=== PATIENT | male | born 1960 | race Caucasian/White ===

== ENCOUNTER 2020-10-12 13:21 | Emergency (ER) | payer OTHER, SELFPAY ==
[2020-10-12 13:22] VITALS: BP 132/75; PULSE 62; RESP 18; TEMP 36; O2SAT 98; BMI 39.5
--- NOTE | 2020-10-12 13:52 | EX.ED.GENINJ ---
HPI History of Present Illness Chief Complaint: Fall Informant: patient and EMS Narrative Narrative: 60-year-old male in town on business states he was going down a flight of stairs when he thought he was on the last step but he was actually on the third of a step. States that his left leg came down he landed on his buttocks and felt a pop in his distal thigh. He states he was unable to get up on his own. He reports being unable to contract his thigh muscles. PFSH PFSH Allergy/AdvReac Type Severity Reaction Status Date / Time No Known Allergies Allergy Verified 10/12/20 13:27 ROS ROS ED Constitutional Constitutional ED: Denies chills or weight loss Eyes Eyes: Denies change in vision or diplopia ENT ENT ED: Denies ear pain, rhinorrhea or sore throat Cardiovascular Cardiovascular: Denies chest pain, orthopnea, palpitations or racing heartbeat Respiratory/Chest Respiratory/Chest: Denies cough, dyspnea or orthopnea Gastrointestinal Gastrointestinal: Denies abdominal pain, diarrhea, nausea or vomiting Genitourinary Genitourinary ED: Denies dysuria, hematuria or urinary frequency Musculoskeletal Musculoskeletal: Reports other Details: See history of present illness ; Denies arthralgias or myalgias Integumentary Denies abscess or rash Neurologic Neurologic: Denies headache(s) or weakness Psychiatric Psychiatric: Denies anxiety, depression, suicidal ideation or suicidal thoughts Endocrine Endocrinology: Denies polydipsia, polyphagia or polyuria Allergic/Immunologic Allergic/Immunologic ED: Denies mouth swelling, tongue swelling or urticaria EXAM Physical Exam Const Vital Signs: 10/12/20 13:22 Temperature 96.8 F L Temperature Source Temporal Pulse Rate 62 Respiratory Rate 18 Blood Pressure 132/75 H Blood Pressure Mean 94 Pulse Ox 98 Oxygen Delivery Method Room Air Positive well nourished, well developed and obese General Appearance ED: well developed Nutritional Appearance: obese HEENT Reports normocephalic, head/scalp atraumatic and moist mucous membranes Eyes PERRL and EOMs intact bilaterally Neck no lymphadenopathy, supple and no JVD Resp normal respiratory effort and clear to auscultation bilaterally Cardio regular rate, regular rhythm and no murmurs GI normal to inspection, nondistended, normoactive bowel sounds and non-tender Palpation: soft Back/Spine no CVA tenderness and normal ROM Extremity Extremity Narrative: Patient appears to have disruption of his extensor mechanism on the left leg. There is a palpable defect just proximal to the left patella. Neurovascular intact distal. General Extremety ED: Negative for edema General Extremity: Negative for edema Neuro oriented x3 and CN's II-XII intact bilaterally Sensorium / Orientation: alert Motor Exam: strength 5/5 throughout Psych mental status grossly normal Mood & Affect: Negative for depressed or tearful Skin no rashes or lesions noted and no wounds MDM MDM MDM Narrative Medical decision making narrative: My impression of the plain films of the left femur and knee is low riding patella with probable avulsion fracture of the proximal patella. I suspect the patient's had quadricep tendon rupture. He will be placed in a knee immobilizer given crutches. A copy of his x-rays will be sent with him. Discharge Plan Triage Chief Complaint: Fall ED Provider: Lewis Summers Dx/Rx/DC Orders Clinical Impression: Rupture of distal quadriceps tendon Activity Restrictions/Additional Instructions: Please follow-up with orthopedics when you get back home. When you call to make the appointment let them know that you are diagnosed with a quadriceps tendon rupture. Disposition Disposition: Home, Self Care
--- NOTE | 2020-10-12 14:00 | RAD_ITS ---
STUDY: X-RAY - LEFT FEMUR REASON FOR STUDY: Male, 60 years old, pain after trauma TECHNIQUE: 4 view(s) of the femur. COMPARISON: None. FINDINGS: Normal visualized femur. Normal visualized soft tissue structure. RAD/Femur Min 2 Views IMPRESSION: Normal x-ray examination of the femur. Electronically Signed: Pascual Boo MD at 14:19 EDT , Service support ,
--- NOTE | 2020-10-12 14:00 | RAD_ITS ---
STUDY: X-RAY - LEFT KNEE REASON FOR EXAM: Male, 60 years old. Pain after trauma TECHNIQUE: 2 view(s) of the knee. COMPARISON: None. FINDINGS: Normal visualized distal femur. Normal visualized proximal tibia and fibula. Normal proximal tibiofibular articulation. 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 Normal lateral femorotibial compartment. There is mild degenerative arthrosis of the patellofemoral articulation. The soft tissue structures are unremarkable. RAD/Knee 1 or 2 Views IMPRESSION: Mild arthrosis, no demonstrated fracture or suspicious osseous lesion Electronically Signed: Pascual Boo MD at 14:20 EDT , Service support ,
[2020-10-12 14:44] VITALS: RESP 18
[2020-10-12 18:09] VITALS: RESP 18
[2020-10-12 18:56] VITALS: BP 128/65; PULSE 85; RESP 16; O2SAT 98
== END 2020-10-12 21:07 | disposition home or self-care (01) ==
PROVIDERS: Emergency Provider Emergency Medicine
DX: S76.112A Strain of left quadriceps muscle, fascia and tendon, initial encounter (principal); W10.9XXA Fall (on) (from) unspecified stairs and steps, initial encounter; Y93.01 Activity, walking, marching and hiking; Y92.9 Unspecified place or not applicable; Y99.9 Unspecified external cause status; M17.12 Unilateral primary osteoarthritis, left knee; E66.9 Obesity, unspecified; Z68.39 Body mass index [BMI] 39.0-39.9, adult
CPT/HCPCS: 73552; 73560; 99285; A4216